=== PATIENT | male | born 1965 | race African-American/Black ===

== ENCOUNTER 2020-10-19 23:14 | Inpatient (IN) | payer OTHER ==
[2020-10-19 23:44] VITALS: BMI 22.3
[2020-10-20] MEDS ORDERED: SODIUM CHLORIDE 1,000 ML IV STA ×2 (00:17→02:40)
[2020-10-20] MEDS ORDERED: morphine CARPU-JECT 4 MG/1 ML DISP.SYRIN IVPUSH ONE (00:17)
[2020-10-20] MEDS ORDERED: ONDANSETRON 4 MG/2 ML VIAL IVPUSH ONE (00:18)
[2020-10-20] MEDS ORDERED: morphine SULFATE 4 MG/ML VIAL ONE (00:21)
[2020-10-20] MEDS ORDERED: ONDANSETRON 4 MG/2 ML VIAL ONE (00:22)
[2020-10-20 00:45] LABS: BASO % 0.4 % (0-2.0); EOS % 2.8 % (0-4.5); HEMOGLOBIN 13.4 GM/dL (11.7-16.9); LYMPH % 14.8 % (8-40); MCHC 34.5 g/dl (32.0-35.9); MEAN CELL VOLUME 87.1 fl (80-96); MEAN PLT VOLUME 7.3 fl (7.5-11.1); MONO % 7.1 % (3.8-10.2); NEUT % 74.9 % (42.8-82.8); PLATELET COUNT 161 K/MM3 (134-434); RBC 4.48 M/mm3 (4.00-5.60); RDW 12.8 % (11.9-15.9); WHITE BLOOD COUNT 8.2 K/mm3 (4.0-10.0)
[2020-10-20 00:49] LABS: EPI CELLS 9 /uL (0-25.1); HYALINE CASTS 1 /uL (0-3.1); URINE APPEARANCE CLOUDY; URINE BACTERIA 53 /uL (0-1359); URINE BILIRUBIN NEGATIVE (NEGATIVE); URINE COLOR DK YELLOW; URINE GLUCOSE (UA) NEGATIVE (NEGATIVE); URINE KETONE TRACE (NEGATIVE); URINE LEUK ESTERASE TRACE (NEGATIVE); URINE NITRITE NEGATIVE (NEGATIVE); URINE PROTEIN 1+ (NEGATIVE); URINE RBC 6198 /uL (0-23.9); URINE WBC 10 /uL (0-25.8)
[2020-10-20 01:04] LABS: POTASSIUM 3.6 mmol/L (3.5-5.1)
[2020-10-20 01:06] LABS: BLOOD UREA NITROGEN 20.5 mg/dL (7-18); CALCIUM 9.4 mg/dL (8.5-10.1)
[2020-10-20 01:09] LABS: CREATININE 1.6 mg/dL (0.55-1.3)
[2020-10-20 01:11] LABS: TOT PROT 7.2 g/dl (6.4-8.2)
[2020-10-20] MEDS ORDERED: morphine CARPU-JECT 2 MG/1 ML DISP.SYRIN IVPUSH ONE ×2 (02:39→04:04)
[2020-10-20] MEDS ORDERED: ACETAMINOPHEN 1000 MG/100 ML VIAL (NON FORMULARY) IVPB ONE (02:39)
[2020-10-20] MEDS ORDERED: MORPHINE SULFATE 2 MG/ML VIAL ONE ×3 (02:47→08:24)
[2020-10-20] MEDS ORDERED: ACETAMINOPHEN INJECTION 100 ML IVPB ONE (02:47)
[2020-10-20] MEDS ORDERED: TAMSULOSIN HCL 0.4 MG CAP PO ONE (03:48)
[2020-10-20] MEDS ORDERED: TAMSULOSIN HCL 0.4 MG CAP ONE (03:54)
[2020-10-20] MEDS ORDERED: SODIUM CHLORIDE 1,000 ML IV SCH (07:00)
[2020-10-20] MEDS ORDERED: morphine CARPU-JECT 2 MG/1 ML DISP.SYRIN SQ ONE (07:34)
[2020-10-20] MEDS ORDERED: MORPHINE SULFATE 2 MG/ML VIAL IM PRN (08:33)
[2020-10-20] MEDS ORDERED: LACTATED RINGERS SOLUTION 1,000 ML IV SCH (08:45)
[2020-10-20 10:12] LABS: INR 1.03 (0.83-1.09); PROTHROMBIN TIME (PATIENT) 12.5 SEC (9.7-13.0)
[2020-10-20 10:15] LABS: ACTIVATED PTT 31.5 SECONDS (25.2-36.5)
[2020-10-20 11:28] LABS: CREATININE, URINE RANDOM > 400.0 mg/dL (30-150)
[2020-10-20] MEDS ORDERED: MIDAZOLAM HCL 2 MG/2 ML SINGLE DOSE VIAL ONE (13:37)
[2020-10-20] MEDS ORDERED: ceFAZolin SODIUM 1 GM VIAL IVPB ONE (13:45)
[2020-10-20] MEDS ORDERED: oxyCODONE HCL 5 MG TABLET PO PRN ×2 (14:35)
[2020-10-20] MEDS ORDERED: PROMETHAZINE HCL 25 MG/1 ML VIAL IVPUSH PRN (14:35)
[2020-10-20] MEDS ORDERED: ONDANSETRON 4 MG/2 ML VIAL IVPUSH PRN (14:35)
[2020-10-20 17:04] VITALS: BP 122/82; PULSE 75; TEMP 97.8
== END 2020-10-20 17:30 | disposition home or self-care (01) | DRG 446 ==
LOC: JER 23:14 → JERBED 10-20 04:58 → OBSVTOIN 10-20 08:37 → J2C 10-20 16:16
PROVIDERS: ADMIT Internal Medicine; ATTEND Internal Medicine
PROC: BT0BZZZ Plain Radiography of Bladder and Urethra (ICD-10-PCS; 2020-10-20)
PROC: 0TC68ZZ Extirpation of Matter from Right Ureter, Via Natural or Artificial Opening Endoscopic (ICD-10-PCS; principal; 2020-10-20 13:30)
PROC: 0T768DZ Dilation of Right Ureter with Intraluminal Device, Via Natural or Artificial Opening Endoscopic (ICD-10-PCS; 2020-10-20 13:30)
DX: N13.2 Hydronephrosis with renal and ureteral calculous obstruction (principal); J45.909 Unspecified asthma, uncomplicated
CPT/HCPCS: 36415; 74176-TC; 76000-TC-FY; 80053; 81003; 82360; 82565; 84300; 85025; 85610; 85730; 86850; 86900; 86901; 87086; 88300-TC; 93005; 93010; 94760; 99285-25; C9803; G0378; J0131; U0003

== ENCOUNTER 2021-06-26 14:56 | Emergency (ER) | payer OTHER ==
[2021-06-26 15:07] VITALS: BP 132/85; PULSE 80; TEMP 97; BMI 23.0
[2021-06-26] MEDS ORDERED: ONDANSETRON 4 MG/2 ML VIAL IVPUSH ONE (16:08)
[2021-06-26] MEDS ORDERED: morphine CARPU-JECT 4 MG/1 ML DISP.SYRIN IVPUSH ONE (16:08)
[2021-06-26] MEDS ORDERED: SODIUM CHLORIDE 0.9% 500 ML INFUS.BAG IV ONE (16:08)
[2021-06-26] MEDS ORDERED: morphine SULFATE 4 MG/ML VIAL ONE (16:23)
[2021-06-26] MEDS ORDERED: ONDANSETRON 4 MG/2 ML VIAL ONE (16:23)
[2021-06-26 16:50] LABS: BASO % 0.4 % (0-2.0); EOS % 1.4 % (0-4.5); HEMOGLOBIN 14.3 GM/dL (11.7-16.9); LYMPH % 13.5 % (8-40); MCH 30.6 pg (25.7-33.7); MCHC 34.9 g/dl (32.0-35.9); MEAN CELL VOLUME 87.5 fl (80-96); MEAN PLT VOLUME 7.2 fl (7.5-11.1); MONO % 10.6 % (3.8-10.2); NEUT % 74.1 % (42.8-82.8); PLATELET COUNT 179 10^3/uL (134-434); RBC 4.69 M/mm3 (4.00-5.60); RDW 12.8 % (11.9-15.9); WHITE BLOOD COUNT 11.4 K/mm3 (4.0-10.0)
[2021-06-26 16:52] LABS: PH,URINE 6.5 (5.0-8.0); URINE APPEARANCE CLEAR; URINE BILIRUBIN NEGATIVE (NEGATIVE); URINE COLOR YELLOW; URINE GLUCOSE (UA) NEGATIVE (NEGATIVE); URINE KETONE 1+ (NEGATIVE); URINE LEUK ESTERASE NEGATIVE (NEGATIVE); URINE NITRITE NEGATIVE (NEGATIVE); URINE PROTEIN NEGATIVE (NEGATIVE); URINE UROBILINOGEN 0.2 mg/dL (0.2-1.0)
[2021-06-26 17:02] LABS: CHLORIDE 105 mmol/L (98-107); SODIUM 139 mmol/L (136-145)
[2021-06-26 17:04] LABS: CALCIUM 9.2 mg/dL (8.5-10.1)
[2021-06-26 17:05] LABS: ANION GAP 3 MMOL/L (8-16); BLOOD UREA NITROGEN 15.4 mg/dL (7-18); CO2 30 mmol/L (21-32); GLUCOSE,RANDOM 92 mg/dL (74-106); LIPASE 375 U/L (73-393)
[2021-06-26 17:08] LABS: CREATININE 1.1 mg/dL (0.55-1.3); SGOT/AST 23 U/L (15-37); SGPT/ALT 28 U/L (13-61)
[2021-06-26 17:09] LABS: BILIRUBIN,TOTAL 0.8 mg/dL (0.2-1); TOT PROT 7.7 g/dl (6.4-8.2)
[2021-06-26 17:11] LABS: ALK PHOS 111 U/L (45-117)
[2021-06-26] MEDS ORDERED: CIPROFLOXACIN 500 MG TABLET (RESTRICTED TO ID) PO ONE (20:27)
[2021-06-26] MEDS ORDERED: metroNIDAZOLE 250 MG TABLET PO ONE (20:27)
[2021-06-26] MEDS ORDERED: metroNIDAZOLE 250 MG TABLET ONE (20:34)
== END 2021-06-26 20:55 | disposition home or self-care (01) ==
LOC: JER 14:56
PROC: 3E033GC Introduction of Other Therapeutic Substance into Peripheral Vein, Percutaneous Approach (ICD-10-PCS; principal; 2021-06-26)
DX: R10.30 Lower abdominal pain, unspecified (principal)
CPT/HCPCS: 36415; 71046-TC-FY; 74176-TC; 80053; 81003; 83690; 84484; 85025; 87086; 93005; 93010; 99285-25

== ENCOUNTER 2024-02-11 00:08 | Emergency (ER) | payer OTHER ==
[2024-02-11 00:13] VITALS: BP 135/83; PULSE 85; RESP 18; TEMP 97.8; BMI 21.6
[2024-02-11] MEDS ORDERED: ACETAMINOPHEN 500 MG TABLET (FP) ONE (01:05)
[2024-02-11] MEDS ORDERED: DIPHTH,PERTUSS(ACELL),TET 0.5 ML DISP.SYRIN IM ONE (01:23)
[2024-02-11] MEDS: DIPHTH,PERTUSS(ACELL),TET 0.5 ML DISP.SYRIN IM ONE (02:33)
[2024-02-11] MEDS: ACETAMINOPHEN 1000 MG/100 ML BAG IVPB ONE (02:34)
== END 2024-02-11 03:18 | disposition home or self-care (01) ==
LOC: JER 00:08
PROC: 0HQ1XZZ Repair Face Skin, External Approach (ICD-10-PCS; principal; 2024-02-11)
PROC: 3E033NZ Introduction of Analgesics, Hypnotics, Sedatives into Peripheral Vein, Percutaneous Approach (ICD-10-PCS; 2024-02-11)
PROC: 3E0234Z Introduction of Serum, Toxoid and Vaccine into Muscle, Percutaneous Approach (ICD-10-PCS; 2024-02-11)
DX: S06.0X9A Concussion with loss of consciousness of unspecified duration, initial encounter (principal); S01.112A Laceration without foreign body of left eyelid and periocular area, initial encounter; S01.511A Laceration without foreign body of lip, initial encounter; S49.92XA Unspecified injury of left shoulder and upper arm, initial encounter; W01.0XXA Fall on same level from slipping, tripping and stumbling without subsequent striking against object, initial encounter; Y92.481 Parking lot as the place of occurrence of the external cause
CPT/HCPCS: 70450-TC; 70486-TC; 72125-TC; 72128-TC; 73030-TC-LT-FY; 73130-TC-LT-FY; 90715; 99284-25; J0131

== ENCOUNTER 2024-02-23 16:52 | Emergency (ER) | payer OTHER ==
[2024-02-23 17:01] VITALS: BP 102/68; PULSE 76; RESP 20; TEMP 98.2; BMI 21.3
== END 2024-02-23 17:35 | disposition home or self-care (01) ==
LOC: JERFT 16:52
DX: Z48.02 Encounter for removal of sutures (principal)
CPT/HCPCS: 99281-25

== ENCOUNTER 2024-05-09 04:09 | Day surgery (SDC) | payer OTHER ==
[2024-05-08 11:38] VITALS: BMI 21.6
[2024-05-09] MEDS ORDERED: LIDOCAINE HCL/PF 1% SDV 5ML VIAL ONE (07:16)
[2024-05-09] MEDS ORDERED: DEXAMETHASONE SOD PHOSPHATE 10 MG/1 ML VIAL ONE (07:16)
[2024-05-09] MEDS ORDERED: DEXAMETHASONE SOD PHOSPHATE 4 MG/1 ML VIAL ONE (07:16)
[2024-05-09] MEDS: LIDOCAINE HCL 1% PRESERVATIVE FREE - 30ML VIAL IJ ONE (11:30)
[2024-05-09] MEDS: IOHEXOL 180 MG/1 ML ML IJ ONE (11:36)
[2024-05-09] MEDS: DEXAMETHASONE SOD PHOSPHATE 10 MG/1 ML VIAL IM ONE (11:38)
[2024-05-09] MEDS ORDERED: ACETAMINOPHEN 500 MG TABLET (FP) ONE (12:26)
[2024-05-09] MEDS: ACETAMINOPHEN 500 MG TABLET (FP) PO PRN (12:26)
[2024-05-09 13:03] VITALS: BP 128/79; PULSE 60; RESP 18; TEMP 97.7
== END 2024-05-09 12:40 | disposition home or self-care (01) ==
LOC: JASU-SURG 04:09
PROVIDERS: ATTEND Pain Medicine Pain Medicine
PROC: 3E0R33Z Introduction of Anti-inflammatory into Spinal Canal, Percutaneous Approach (ICD-10-PCS; principal; 2024-05-09 10:00)
DX: M54.16 Radiculopathy, lumbar region (principal)
CPT/HCPCS: 76000-TC-FY; J1100